=== PATIENT | female | born 2000 | race Caucasian/White ===

== ENCOUNTER 2025-01-26 04:37 | Inpatient (IN) | payer MEDICAID ==
[2025-01-26] MEDS ORDERED: Ondansetron 4 MG/2 ML SDV IVPUSH PRN (05:07)
[2025-01-26] MEDS ORDERED: Nalbuphine 10 MG/1 ML Vial IVPUSH PRN (05:07)
[2025-01-26] MEDS ORDERED: Sodium Chloride 0.9% 10 ML Syringe FLUSH PRN (05:07)
[2025-01-26] MEDS ORDERED: Carboprost Tromethamine 250 MCG/1 mL Vial IM PRN (05:07)
[2025-01-26] MEDS ORDERED: Sodium Chloride 0.9% 2.5 ML Syringe FLUSH PRN (05:07)
[2025-01-26] MEDS ORDERED: Butorphanol 1 MG/ML SDV IVPUSH PRN (05:07)
[2025-01-26 05:50] LABS: NRBC ABSOLUTE 0.00 K/uL (0.00-0.02); NRBC PERCENT 0.0 /100WBC (0.0-0.2); PLATELET COUNT,PLT 167 K/uL (150-400); RED BLOOD CELL COUNT 5.22 M/uL (4.10-5.30); WHITE BLOOD CELL COUNT,WBC 12.63 K/uL (3.9-11.3)
[2025-01-26] MEDS: Lactated Ringers 1,000 ML IV SCH (06:13)
[2025-01-26] MEDS: Water For Irrigation,Sterile 1,000 ML Container IRR PRN (07:10)
[2025-01-26] MEDS: Oxytocin/0.9 % Sodium Chloride 30 UNIT/500 ML BAG IV SCH (07:21)
[2025-01-26] MEDS ORDERED: Lanolin 100% Cream 7 GM Tube TOP PRN (09:58)
[2025-01-26] MEDS: Witch Hazel Medicated Pads 40/Jar TOP PRN (11:42)
[2025-01-26] MEDS: Benzocaine/Menthol 20%-0.5% Spray 78 GM Cannister TOP PRN (11:42)
== END 2025-01-27 19:40 | disposition home or self-care (01) | DRG 807 ==
LOC: MW.OBCHECK 04:37 → MW.OB 04:38 → OBSVTOIN 05:07 → MW.OBCHECK 05:07 → MW.OB 11:02
PROVIDERS: ADMIT Obstetrics & Gynecology Obstetrics; ATTEND Obstetrics & Gynecology Obstetrics
PROC: 10E0XZZ Delivery of Products of Conception, External Approach (ICD-10-PCS; principal; 2025-01-26)
PROC: 3E0R3BZ Introduction of Anesthetic Agent into Spinal Canal, Percutaneous Approach (ICD-10-PCS; 2025-01-26)
DX: O80 Encounter for full-term uncomplicated delivery (principal); Z37.0 Single live birth; Z3A.39 39 weeks gestation of pregnancy; Z79.899 Other long term (current) drug therapy
CPT/HCPCS: 36415; 59025; 59409; 85014; 85018; 85027; 86592; 86850; 86900; 86901; A9270-GY; J2210; J2590; J3490; J7120